=== PATIENT | female | born 1965 | race Caucasian/White ===

== ENCOUNTER 2021-05-15 11:27 | Day surgery (SDC) | payer OTHER, SELFPAY ==
[~2021-05-15] VITALS: Ht 160 cm; Wt 88.9 kg
[2021-05-15] MEDS ORDERED: LIDOCAINE 2% 100 MG/5 ML UJET TP ONE ×2 (14:31→16:00)
[2021-05-15] MEDS ORDERED: fentaNYL citrate 0.05 MG/ML VIAL ONE (14:31)
[2021-05-15] MEDS ORDERED: fentaNYL citrate 0.05 MG/ML VIAL IVP ONE (16:00)
== END 2021-05-15 15:40 | disposition home or self-care (01) ==
LOC: MDS 11:27 → MMU 11:27 → MDS 15:40
PROVIDERS: ATTEND Internal Medicine Gastroenterology
DX: Z12.11 Encounter for screening for malignant neoplasm of colon (principal); K64.8 Other hemorrhoids; E78.00 Pure hypercholesterolemia, unspecified; Z79.899 Other long term (current) drug therapy; Z80.0 Family history of malignant neoplasm of digestive organs
CPT/HCPCS: 45378; J3010; U0003